=== PATIENT | male | born 1990 ===

== ENCOUNTER 2021-08-15 10:57 | Emergency (ER) | payer OTHER ==
[2021-08-15 11:15] LABS: ANION GAP 11.8 mEq/L (7-13); CHLORIDE,CL 103 mmol/L (98-107); SODIUM,NA 139 mmol/L (136-145)
[2021-08-15 11:16] LABS: ESTIMATED GFR 92 mL/min (>=60)
== END 2021-08-15 11:42 ==
LOC: DL.ED 10:57
DX: R41.82 Altered mental status, unspecified (principal)
CPT/HCPCS: 36415; 70450; 70486; 71260; 72125; 74177; 80053; 81001; 84484; 85025; 99285-25